=== PATIENT | male | born 1965 | race African-American/Black ===

== ENCOUNTER 2017-07-18 15:27 | Emergency (ER) | payer MEDICAID ==
[~2017-07-18] VITALS: Ht 185.4 cm; Wt 99.9 kg
[2017-07-18] MEDS ORDERED: HYDROcodone/APAP 5/325 TABLET ONE (16:18)
[2017-07-18] MEDS ORDERED: HYDROcodone/APAP 5/325 TABLET PO ONE (16:30)
[2017-07-18 17:02] VITALS: BP 170/104
[2017-07-18] MEDS ORDERED: OXYcodone/APAP 5/325MG TABLET ONE (17:19)
[2017-07-18] MEDS ORDERED: OXYcodone/APAP 10/325MG TABLET ONE (17:23)
[2017-07-18] MEDS ORDERED: OXYcodone/APAP 10/325MG TABLET PO ONE (17:30)
== END 2017-07-18 17:58 | disposition home or self-care (01) ==
LOC: ED 16:29
DX: K08.89 Other specified disorders of teeth and supporting structures (principal)
CPT/HCPCS: 99283

== ENCOUNTER 2017-07-19 03:40 | Emergency (ER) | payer MEDICAID ==
[~2017-07-19] VITALS: Ht 185.4 cm; Wt 100.0 kg
[2017-07-19] MEDS ORDERED: OXYcodone/APAP 5/325MG TABLET ONE (05:11)
[2017-07-19] MEDS ORDERED: LIDOCAINE 1%, 20ML ONE (05:11)
[2017-07-19] MEDS ORDERED: LIDOCAINE 1%, 20ML INFIL ONE (05:30)
[2017-07-19] MEDS ORDERED: OXYcodone/APAP 5/325MG TABLET PO ONE (05:30)
[2017-07-19 06:08] VITALS: BP 213/110
== END 2017-07-19 06:19 | disposition home or self-care (01) ==
LOC: ED 04:03
DX: K08.89 Other specified disorders of teeth and supporting structures (principal); I10 Essential (primary) hypertension; F12.10 Cannabis abuse, uncomplicated
CPT/HCPCS: 64450; 99284

== ENCOUNTER 2017-07-19 14:59 | Emergency (ER) | payer MEDICAID ==
[~2017-07-19] VITALS: Ht 185.4 cm; Wt 99.1 kg
[2017-07-19 15:09] VITALS: BP 212/103
[2017-07-19] MEDS ORDERED: OXYcodone/APAP 5/325MG TABLET ONE ×2 (15:54→16:38)
[2017-07-19] MEDS ORDERED: OXYcodone/APAP 5/325MG TABLET PO ONE ×2 (16:00→16:30)
== END 2017-07-19 16:43 | disposition home or self-care (01) ==
LOC: ED 16:37
DX: K08.89 Other specified disorders of teeth and supporting structures (principal); I10 Essential (primary) hypertension
CPT/HCPCS: 99283

== ENCOUNTER 2017-07-31 01:56 | Emergency (ER) | payer MEDICAID ==
[~2017-07-31] VITALS: Ht 185.4 cm; Wt 105.5 kg
[2017-07-31] MEDS ORDERED: ONDANSETRON ODT 4 MG ONE (02:45)
[2017-07-31] MEDS ORDERED: OXYcodone/APAP 5/325MG TABLET ONE (02:45)
[2017-07-31] MEDS ORDERED: OXYcodone/APAP 5/325MG TABLET PO PRN (03:00)
[2017-07-31] MEDS ORDERED: AMOXICILLIN 500 MG CAPSULE PO ONE (03:00)
[2017-07-31] MEDS ORDERED: ONDANSETRON ODT 4 MG PO ONE (03:00)
[2017-07-31 03:05] LABS: HEMATOCRIT 40.5 % (39.2-51.8); HEMOGLOBIN 13.1 g/dL (13.7-18.0); WHITE BLOOD COUNT 7.1 x10^3/uL (3.4-10)
[2017-07-31 03:16] LABS: BLOOD UREA NITROGEN 16 mg/dL (7-18)
[2017-07-31 03:17] LABS: ASPARTATE AMINO TRANSFERASE 15 U/L (15-37)
[2017-07-31 03:40] VITALS: BP 116/77
== END 2017-07-31 04:40 | disposition home or self-care (01) ==
LOC: ED 02:08
DX: K04.7 Periapical abscess without sinus (principal); I10 Essential (primary) hypertension; R11.2 Nausea with vomiting, unspecified; R19.7 Diarrhea, unspecified
CPT/HCPCS: 36415; 74020; 80053; 83690; 85025; 99285; Q0162

== ENCOUNTER 2017-09-12 00:02 | Emergency (ER) | payer MEDICAID ==
[~2017-09-12] VITALS: Ht 190.5 cm; Wt 105.6 kg
[2017-09-12 00:36] VITALS: BP 170/110
== END 2017-09-12 00:48 | disposition home or self-care (01) ==
LOC: ED 00:19
DX: K02.9 Dental caries, unspecified (principal); I10 Essential (primary) hypertension
CPT/HCPCS: 99283